=== PATIENT | male | born 1965 | race Caucasian/White ===

== ENCOUNTER 2021-09-10 07:47 | Observation (INO) ==
[2021-09-10] MEDS ORDERED: ONDANSETRON 4 MG/2 ML VIAL IV STA (08:17)
[2021-09-10] MEDS ORDERED: SODIUM CHLORIDE 0.9% 1,000 ML IV STA (08:17)
[2021-09-10] MEDS ORDERED: PANTOPRAZOLE 40 MG VIAL IV STA (08:17)
[2021-09-10 08:23] LABS: Basophils % 0.1 % (0.0-0.8); Hemoglobin 9.5 GM/DL (14.0-18.0); Immature Granulocytes % 0.8 %; Immature Granulocytes Absolute 0.11 #; Lymphocytes # 0.4 10*3/uL (1.4-4.0); Lymphocytes % 2.9 % (21.2-54.2); Mean Corpuscular HGB Conc 31.7 GM/DL (32-36); Mean Corpuscular Volume 100.3 FL (87-102); Mean Platelet Volume 8.5 FL (9.6-12.0); Monocytes # 0.8 10*3/uL (0.11-0.8); NRBC # 0.02 10*3/uL; Neutrophils % 90.2 % (38.7-73.9); Platelet Count 491 T/CUMM (130-400); Red Blood Count 2.99 MC/CUMM (3.8-5.5); Red Cell Distribution Width 17.3 % (9.3-17.3)
[2021-09-10 08:42] LABS: Lymphocytes 4 % (20-55); Platelet Estimate Adequate; Total Cells Counted 100
[2021-09-10 08:51] LABS: Alanine Aminotransferase 41 U/L (16-61); Alkaline Phosphatase 132 U/L (45-117); Aspartate Amino Transferase 26 U/L (0-37); Bilirubin,Total < 0.39 MG/DL (0.20-1.00); Blood Urea Nitrogen 28 MG/DL (7-18); Calcium 9.8 MG/DL (8.5-10.1); Carbon Dioxide 32 MMOL/L (21-32); Chloride 95 MMOL/L (98-107); Estimated Glom Filtration Rate 90 ML/MIN; Glucose 110 MG/DL (74-106); Osmolality,Calculated 274.2 MOS/KG (273-304); Potassium 3.7 MMOL/L (3.5-5.1); Sodium 134 MMOL/L (136-145); Total Protein 7.2 G/DL (6.4-8.2)
[2021-09-10 09:16] LABS: PT Patient Result 11.3 SECS (10.5-12.0)
[2021-09-10 09:17] LABS: Partial Thromboplastin Time 20.2 SECS (23.8-32.1)
[2021-09-10] MEDS ORDERED: ONDANSETRON 4 MG/2 ML VIAL IV PRN (15:41)
[2021-09-10] MEDS ORDERED: DEXTROSE 10% 250 ML BAG IV PRN (15:41)
[2021-09-10] MEDS ORDERED: PROMETHAZINE 25 MG/1 ML VIAL IM PRN (15:41)
[2021-09-10] MEDS ORDERED: GLUCAGON 1 MG VIAL IM PRN (15:41)
[2021-09-10 15:52] LABS: Hemoglobin 8.6 GM/DL (14.0-18.0)
[2021-09-10] MEDS ORDERED: methylPREDNISolone SOD SUC 125 MG/2 ML VIAL IV ONE (19:33)
[2021-09-10] MEDS: PANTOPRAZOLE 40 MG VIAL IV SCH (20:11)
[2021-09-10] MEDS: LACTATED RINGERS 1,000 ML IV SCH (20:54)
[2021-09-11 01:39] LABS: Hematocrit 27.2 VOL% (42.0-52.0); Hemoglobin 8.4 GM/DL (14.0-18.0)
[2021-09-11] MEDS: methylPREDNISolone SOD SUC 40 MG/1 ML VIAL IV SCH ×3 (01:48→14:07)
[2021-09-11 01:59] LABS: Alanine Aminotransferase 28 U/L (16-61); Albumin 2.4 G/DL (3.4-5.0); Alkaline Phosphatase 109 U/L (45-117); Aspartate Amino Transferase 14 U/L (0-37); Bilirubin,Total < 0.39 MG/DL (0.20-1.00); Blood Urea Nitrogen 22 MG/DL (7-18); Calcium 9.3 MG/DL (8.5-10.1); Carbon Dioxide 29 MMOL/L (21-32); Chloride 99 MMOL/L (98-107); Estimated Glom Filtration Rate 98 ML/MIN; Glucose 115 MG/DL (74-106); Osmolality,Calculated 273.1 MOS/KG (273-304); Potassium 3.8 MMOL/L (3.5-5.1); Sodium 135 MMOL/L (136-145); Total Protein 6.6 G/DL (6.4-8.2)
[2021-09-11] MEDS: LACTATED RINGERS 1,000 ML IV SCH (06:00)
[2021-09-11] MEDS: PANTOPRAZOLE 40 MG VIAL IV SCH (08:28)
[2021-09-11 11:41] VITALS: BP 104/35
== END 2021-09-11 14:28 | disposition home or self-care (01) ==
LOC: N.EDINP 07:47 → N.ED 07:47 → N.EDINP 18:10 → N.5E 18:12
PROVIDERS: ADMIT Internal Medicine; ATTEND Internal Medicine

== ENCOUNTER 2021-09-13 11:00 | Inpatient (IN) ==
[2021-09-13 13:16] LABS: Basophils % 0.1 % (0.0-0.8); Hematocrit 26.4 VOL% (42.0-52.0); Hemoglobin 8.5 GM/DL (14.0-18.0); Immature Granulocytes % 0.5 %; Immature Granulocytes Absolute 0.07 #; Lymphocytes # 0.2 10*3/uL (1.4-4.0); Lymphocytes % 1.2 % (21.2-54.2); Mean Corpuscular HGB Conc 32.2 GM/DL (32-36); Mean Platelet Volume 8.6 FL (9.6-12.0); Monocytes # 0.7 10*3/uL (0.11-0.8); Monocytes % 4.8 % (1.7-12.7); Neutrophils % 93.4 % (38.7-73.9); Platelet Count 398 T/CUMM (130-400); Red Blood Count 2.64 MC/CUMM (3.8-5.5); Red Cell Distribution Width 17.6 % (9.3-17.3); White Blood Count 14.1 T/CUMM (4-12)
[2021-09-13 13:37] LABS: Alanine Aminotransferase 38 U/L (16-61); Albumin 2.6 G/DL (3.4-5.0); Alkaline Phosphatase 114 U/L (45-117); Aspartate Amino Transferase 15 U/L (0-37); Bilirubin,Total < 0.39 MG/DL (0.20-1.00); Blood Urea Nitrogen 25 MG/DL (7-18); Calcium 9.5 MG/DL (8.5-10.1); Carbon Dioxide 35 MMOL/L (21-32); Chloride 92 MMOL/L (98-107); Estimated Glom Filtration Rate 96 ML/MIN; Glucose 108 MG/DL (74-106); Osmolality,Calculated 272.2 MOS/KG (273-304); Potassium 3.1 MMOL/L (3.5-5.1); Sodium 134 MMOL/L (136-145); Total Protein 6.9 G/DL (6.4-8.2)
[2021-09-13] MEDS ORDERED: PIPERACILLIN/TAZOBACTAM 3,375 MG in SODIUM CHLORIDE 0.9% 100 ML IV STA ×2 (13:55→13:59)
[2021-09-13] MEDS ORDERED: DOCUSATE SODIUM 100 MG CAPSULE PO PRN (14:15)
[2021-09-13] MEDS ORDERED: ACETAMINOPHEN 325 MG TABLET PO PRN (14:15)
[2021-09-13] MEDS ORDERED: GLUCAGON 1 MG VIAL IM PRN (14:15)
[2021-09-13] MEDS ORDERED: ONDANSETRON 4 MG/2 ML VIAL IV PRN (14:15)
[2021-09-13] MEDS ORDERED: DEXTROSE 10% 250 ML BAG IV PRN (14:23)
[2021-09-13] MEDS ORDERED: LACTATED RINGERS 1,000 ML IV SCH (14:30)
[2021-09-13] MEDS ORDERED: NITROGLYCERIN SL 0.4 MG TABLET SL PRN (14:32)
[2021-09-13] MEDS ORDERED: NICOTINE 14 MG/24 HR PATCH TRANSDERM PRN (14:34)
[2021-09-13] MEDS: VANCOMYCIN INJ 1,000 MG in SODIUM CHLORIDE 0.9% 250 ML IV SCH (15:37)
[2021-09-13] MEDS: POTASSIUM CHLORIDE INJ 40 MEQ in LACTATED RINGERS 1,000 ML IV SCH (15:37)
[2021-09-13] MEDS ORDERED: ACETAMINOPHEN 650 MG SUPP RECTAL PRN (15:46)
[2021-09-13 16:00] LABS: Lymphocytes 2 % (20-55); Platelet Estimate Increased; Total Cells Counted 100
[2021-09-13 16:01] LABS: Hypochromia 1+; Polychromasia Few
[2021-09-13 16:02] LABS: Stomatocytes Few
[2021-09-13] MEDS: ATORVASTATIN 10 MG TABLET PO SCH (20:26)
[2021-09-13] MEDS: PIPERACILLIN/TAZOBACTAM 3,375 MG in SODIUM CHLORIDE 0.9% 100 ML IV SCH (21:14)
[2021-09-14] MEDS: POTASSIUM CHLORIDE RIDER 10 MEQ/100 ML PREMIX IV PRN ×7 (01:42→14:14)
[2021-09-14] MEDS: VANCOMYCIN INJ 1,000 MG in SODIUM CHLORIDE 0.9% 250 ML IV SCH ×2 (03:04→15:40)
[2021-09-14] MEDS: PIPERACILLIN/TAZOBACTAM 3,375 MG in SODIUM CHLORIDE 0.9% 100 ML IV SCH ×3 (06:03→22:57)
[2021-09-14 06:14] LABS: Eosinophils % 0.2 % (0.00-10.9); Hematocrit 23.9 VOL% (42.0-52.0); Hemoglobin 7.4 GM/DL (14.0-18.0); Immature Granulocytes % 0.4 %; Immature Granulocytes Absolute 0.04 #; Lymphocytes # 0.2 10*3/uL (1.4-4.0); Lymphocytes % 2.5 % (21.2-54.2); Mean Corpuscular Volume 101.7 FL (87-102); Mean Platelet Volume 8.5 FL (9.6-12.0); Monocytes # 0.5 10*3/uL (0.11-0.8); Monocytes % 4.8 % (1.7-12.7); Neutrophils % 92.1 % (38.7-73.9); Platelet Count 324 T/CUMM (130-400); Red Blood Count 2.35 MC/CUMM (3.8-5.5); Red Cell Distribution Width 18.1 % (9.3-17.3); White Blood Count 9.4 T/CUMM (4-12)
[2021-09-14 06:38] LABS: Calcium 8.8 MG/DL (8.5-10.1); Potassium 3.6 MMOL/L (3.5-5.1)
[2021-09-14 06:57] LABS: Anisocytosis 1+; Band Neutrophils 11 % (0-10); Lymphocytes 3 % (20-55); Macrocytosis 2+; Platelet Estimate Normal; Total Cells Counted 100
[2021-09-14 06:58] LABS: Spherocytes Few
[2021-09-14] MEDS: POTASSIUM CHLORIDE INJ 40 MEQ in LACTATED RINGERS 1,000 ML IV SCH ×3 (08:05→10:11)
[2021-09-14] MEDS: PANTOPRAZOLE 40 MG TABLET PO SCH (08:35)
[2021-09-14] MEDS: ISOSORBIDE MONONITRATE 30 MG TABLET PO SCH (08:36)
[2021-09-14] MEDS: NEBIVOLOL 5 MG TABLET PO SCH (09:24)
[2021-09-14] MEDS: amLODIPine 10 MG TABLET PO SCH (09:25)
[2021-09-14 10:13] LABS: Amorphous Crystals,Urine Few /HPF (Few); RBC,Urine 6 /HPF (0-4); Urine Appearance Slightly Cloudy (Clear); Urine Color Yellow (Yellow); Urine pH 8.5 (4.5-8.0)
[2021-09-14 10:14] LABS: Bilirubin,Urine Negative (Negative); Blood, Urine Negative (Negative); Glucose,Urine (UA) Negative (Negative); Ketones,Urine Negative (Negative); Nitrite,Urine Negative (Negative); Protein,Urine 30 mg/dL (Negative); Urine Specific Gravity 1.015 (1.001-1.035)
[2021-09-14] MEDS: ALBUTEROL/IPRATROPIUM 3 ML NEB RESP TX SCH ×2 (13:50→18:50)
[2021-09-14] MEDS: ATORVASTATIN 10 MG TABLET PO SCH (20:47)
[2021-09-15] MEDS: ALBUTEROL/IPRATROPIUM 3 ML NEB RESP TX SCH ×4 (00:50→19:25)
[2021-09-15 02:46] LABS: Basophils % 0.1 % (0.0-0.8); Eosinophils # 0.1 10*3/uL (0.0-0.87); Eosinophils % 0.9 % (0.00-10.9); Hematocrit 24.4 VOL% (42.0-52.0); Hemoglobin 7.5 GM/DL (14.0-18.0); Immature Granulocytes % 0.3 %; Immature Granulocytes Absolute 0.02 #; Lymphocytes # 0.3 10*3/uL (1.4-4.0); Lymphocytes % 3.5 % (21.2-54.2); Mean Corpuscular HGB Conc 30.7 GM/DL (32-36); Mean Platelet Volume 8.4 FL (9.6-12.0); Monocytes # 0.4 10*3/uL (0.11-0.8); Neutrophils % 90.2 % (38.7-73.9); Platelet Count 319 T/CUMM (130-400); Red Blood Count 2.37 MC/CUMM (3.8-5.5); Red Cell Distribution Width 18.4 % (9.3-17.3)
[2021-09-15 03:08] LABS: Calcium 9.2 MG/DL (8.5-10.1); Osmolality,Calculated 270.1 MOS/KG (273-304); Potassium 3.5 MMOL/L (3.5-5.1)
[2021-09-15 03:16] LABS: Eosinophils 1 % (0-10); Lymphocytes 5 % (20-55); Platelet Estimate Normal; Total Cells Counted 100
[2021-09-15] MEDS: VANCOMYCIN INJ 1,000 MG in SODIUM CHLORIDE 0.9% 250 ML IV SCH ×2 (03:34→15:40)
[2021-09-15] MEDS: PIPERACILLIN/TAZOBACTAM 3,375 MG in SODIUM CHLORIDE 0.9% 100 ML IV SCH ×3 (05:57→21:06)
[2021-09-15] MEDS: KETOROLAC 15 MG/1 ML VIAL IV PRN (08:47)
[2021-09-15] MEDS: PANTOPRAZOLE 40 MG TABLET PO SCH (08:48)
[2021-09-15] MEDS: ISOSORBIDE MONONITRATE 30 MG TABLET PO SCH (09:59)
[2021-09-15] MEDS ORDERED: ZINC OXIDE PASTE 113 GM TUBE TOP PRN (15:27)
[2021-09-15] MEDS ORDERED: traZODone 50 MG TABLET PO PRN (15:43)
[2021-09-15 16:52] LABS: % Iron Saturation 12.2 % (18-50)
[2021-09-15] MEDS: ATORVASTATIN 10 MG TABLET PO SCH (21:09)
[2021-09-16] MEDS: ALBUTEROL/IPRATROPIUM 3 ML NEB RESP TX SCH ×4 (01:05→19:10)
[2021-09-16] MEDS: VANCOMYCIN INJ 1,000 MG in SODIUM CHLORIDE 0.9% 250 ML IV SCH (03:45)
[2021-09-16 04:38] LABS: Basophils % 0.2 % (0.0-0.8); Eosinophils # 0.1 10*3/uL (0.0-0.87); Eosinophils % 1.7 % (0.00-10.9); Hematocrit 22.9 VOL% (42.0-52.0); Hemoglobin 7.1 GM/DL (14.0-18.0); Immature Granulocytes % 0.4 %; Immature Granulocytes Absolute 0.02 #; Lymphocytes # 0.3 10*3/uL (1.4-4.0); Lymphocytes % 5.2 % (21.2-54.2); Mean Corpuscular Volume 102.2 FL (87-102); Mean Platelet Volume 8.6 FL (9.6-12.0); Monocytes # 0.4 10*3/uL (0.11-0.8); Monocytes % 8.1 % (1.7-12.7); Neutrophils % 84.4 % (38.7-73.9); Platelet Count 319 T/CUMM (130-400); Red Blood Count 2.24 MC/CUMM (3.8-5.5); Red Cell Distribution Width 17.9 % (9.3-17.3); White Blood Count 4.8 T/CUMM (4-12)
[2021-09-16 04:46] LABS: PT Patient Result 11.4 SECS (10.5-12.0)
[2021-09-16 04:52] LABS: Calcium 9.4 MG/DL (8.5-10.1); Osmolality,Calculated 277.5 MOS/KG (273-304); Potassium 3.2 MMOL/L (3.5-5.1)
[2021-09-16] MEDS: PIPERACILLIN/TAZOBACTAM 3,375 MG in SODIUM CHLORIDE 0.9% 100 ML IV SCH ×3 (05:30→21:16)
[2021-09-16] MEDS: POTASSIUM CHLORIDE RIDER 10 MEQ/100 ML PREMIX IV PRN ×2 (05:35→07:55)
[2021-09-16] MEDS: KETOROLAC 15 MG/1 ML VIAL IV PRN (05:49)
[2021-09-16] MEDS ORDERED: LIDOCAINE 4% TOP SOLN 50 ML BOTTLE ONE (09:38)
[2021-09-16] MEDS ORDERED: LIDOCAINE 4% TOP SOLN 50 ML BOTTLE TOP ONE (09:40)
[2021-09-16] MEDS ORDERED: KETAMINE 500 MG/10 ML VIAL ONE (09:43)
[2021-09-16] MEDS ORDERED: MIDAZOLAM 2 MG/2 ML VIAL ONE (09:43)
[2021-09-16] MEDS ORDERED: LIDOCAINE 2% 5 ML VIAL ONE (10:27)
[2021-09-16] MEDS ORDERED: propofoL 200 MG/20 ML VIAL IV ONE (10:27)
[2021-09-16] MEDS ORDERED: SUCCINYLCHOLINE 200 MG/10 ML VIAL ONE (10:27)
[2021-09-16] MEDS: NEBIVOLOL 5 MG TABLET PO SCH (11:48)
[2021-09-16] MEDS: amLODIPine 10 MG TABLET PO SCH (11:49)
[2021-09-16] MEDS: ISOSORBIDE MONONITRATE 30 MG TABLET PO SCH (11:49)
[2021-09-16] MEDS: PANTOPRAZOLE 40 MG TABLET PO SCH (11:49)
[2021-09-16] MEDS ORDERED: SODIUM CHLORIDE 0.9% 1,000 ML IV PRN (14:30)
[2021-09-16] MEDS ORDERED: POTASSIUM CHLORIDE 20 MEQ TABLET PO ONE (15:00)
[2021-09-16] MEDS: FERROUS GLUCONATE 324 MG TABLET PO SCH (17:26)
[2021-09-16] MEDS: ATORVASTATIN 10 MG TABLET PO SCH (21:22)
[2021-09-16] MEDS: LACTATED RINGERS 1,000 ML IV SCH (22:54)
[2021-09-17] MEDS: ALBUTEROL/IPRATROPIUM 3 ML NEB RESP TX SCH ×4 (00:20→19:44)
[2021-09-17 05:12] LABS: Basophils % 0.3 % (0.0-0.8); Eosinophils # 0.1 10*3/uL (0.0-0.87); Eosinophils % 2.2 % (0.00-10.9); Hematocrit 31.5 VOL% (42.0-52.0); Hemoglobin 9.7 GM/DL (14.0-18.0); Immature Granulocytes % 0.6 %; Immature Granulocytes Absolute 0.04 #; Lymphocytes # 0.3 10*3/uL (1.4-4.0); Lymphocytes % 4.4 % (21.2-54.2); Mean Corpuscular HGB Conc 30.8 GM/DL (32-36); Mean Corpuscular Volume 99.4 FL (87-102); Mean Platelet Volume 8.5 FL (9.6-12.0); Monocytes # 0.5 10*3/uL (0.11-0.8); Monocytes % 8.3 % (1.7-12.7); Neutrophils % 84.2 % (38.7-73.9); Platelet Count 303 T/CUMM (130-400); Red Blood Count 3.17 MC/CUMM (3.8-5.5); Red Cell Distribution Width 17.5 % (9.3-17.3); White Blood Count 6.4 T/CUMM (4-12)
[2021-09-17 05:26] LABS: Osmolality,Calculated 283.1 MOS/KG (273-304); Potassium 3.3 MMOL/L (3.5-5.1)
[2021-09-17 05:27] LABS: Risk Ratio 2.49; VLDL Cholesterol 23.4 MG/DL
[2021-09-17] MEDS: PIPERACILLIN/TAZOBACTAM 3,375 MG in SODIUM CHLORIDE 0.9% 100 ML IV SCH (05:35)
[2021-09-17 05:38] LABS: Band Neutrophils 1 % (0-10); Eosinophils 1 % (0-10); Lymphocytes 5 % (20-55); Macrocytosis 1+; Total Cells Counted 100
[2021-09-17 05:39] LABS: Platelet Estimate Normal; Polychromasia Slight
[2021-09-17] MEDS: KETOROLAC 15 MG/1 ML VIAL IV PRN ×3 (08:44→22:58)
[2021-09-17] MEDS ORDERED: LIDOCAINE 1%/EPI INJ 20 ML VIAL ONE (10:27)
[2021-09-17] MEDS ORDERED: TISSUE ADHESIVE 1 EACH APPLICATOR TOP ONE (10:27)
[2021-09-17] MEDS ORDERED: BUPIVACAINE MPF 0.25% 30 ML VIAL ONE (10:27)
[2021-09-17] MEDS: LACTATED RINGERS 1,000 ML IV SCH ×3 (10:34→12:32)
[2021-09-17] MEDS: FERROUS GLUCONATE 324 MG TABLET PO SCH ×2 (12:32→16:12)
[2021-09-17] MEDS: amLODIPine 10 MG TABLET PO SCH (12:33)
[2021-09-17] MEDS: NEBIVOLOL 5 MG TABLET PO SCH (12:33)
[2021-09-17] MEDS: CHOLECALCIFEROL 5,000 UNIT TABLET PO SCH (12:33)
[2021-09-17] MEDS: ISOSORBIDE MONONITRATE 30 MG TABLET PO SCH (12:33)
[2021-09-17] MEDS: PANTOPRAZOLE 40 MG TABLET PO SCH (12:33)
[2021-09-17] MEDS ORDERED: POTASSIUM CHLORIDE 20 MEQ TABLET PO ONE (14:00)
[2021-09-17] MEDS ORDERED: ONDANSETRON 4 MG/2 ML VIAL IV PRN (14:53)
[2021-09-17] MEDS ORDERED: HYDROmorphone 1 MG/1 ML SYRINGE IV PRN (14:53)
[2021-09-17] MEDS: cefTRIAXone 1,000 MG in SODIUM CHLORIDE 0.9% 100 ML IV SCH (15:48)
[2021-09-17] MEDS: POTASSIUM CHLORIDE RIDER 10 MEQ/100 ML PREMIX IV PRN ×4 (15:49→19:09)
[2021-09-17] MEDS: ATORVASTATIN 10 MG TABLET PO SCH (20:58)
[2021-09-18] MEDS: ALBUTEROL/IPRATROPIUM 3 ML NEB RESP TX SCH ×5 (00:28→18:53)
[2021-09-18] MEDS: KETOROLAC 15 MG/1 ML VIAL IV PRN (05:03)
[2021-09-18 05:28] LABS: Hematocrit 31.3 VOL% (42.0-52.0); Hemoglobin 9.5 GM/DL (14.0-18.0); Immature Granulocytes % 0.6 %; Immature Granulocytes Absolute 0.05 #; Lymphocytes # 0.3 10*3/uL (1.4-4.0); Lymphocytes % 3.4 % (21.2-54.2); Mean Corpuscular HGB Conc 30.4 GM/DL (32-36); Mean Corpuscular Volume 101.3 FL (87-102); Mean Platelet Volume 8.6 FL (9.6-12.0); Monocytes # 0.4 10*3/uL (0.11-0.8); Monocytes % 5.5 % (1.7-12.7); Neutrophils % 90.5 % (38.7-73.9); Platelet Count 294 T/CUMM (130-400); Red Blood Count 3.09 MC/CUMM (3.8-5.5); Red Cell Distribution Width 17.5 % (9.3-17.3)
[2021-09-18 05:47] LABS: Calcium 8.7 MG/DL (8.5-10.1); Osmolality,Calculated 280.4 MOS/KG (273-304); Potassium 4.9 MMOL/L (3.5-5.1)
[2021-09-18 05:57] LABS: Band Neutrophils 1 % (0-10); Lymphocytes 4 % (20-55); Macrocytosis 1+; Metamyelocytes 1 %; Total Cells Counted 100
[2021-09-18 05:58] LABS: Platelet Estimate Normal
[2021-09-18] MEDS ORDERED: LACTATED RINGERS 1,000 ML IV SCH (08:00)
[2021-09-18] MEDS: PANTOPRAZOLE 40 MG TABLET PO SCH (08:43)
[2021-09-18] MEDS: CHOLECALCIFEROL 5,000 UNIT TABLET PO SCH (08:43)
[2021-09-18] MEDS: FERROUS GLUCONATE 324 MG TABLET PO SCH ×2 (08:44→18:33)
[2021-09-18] MEDS: ISOSORBIDE MONONITRATE 30 MG TABLET PO SCH (08:49)
[2021-09-18] MEDS: amLODIPine 10 MG TABLET PO SCH (08:49)
[2021-09-18] MEDS: NEBIVOLOL 5 MG TABLET PO SCH (08:49)
[2021-09-18] MEDS: LACTATED RINGERS 1,000 ML IV SCH (08:49)
[2021-09-18] MEDS: cefTRIAXone 1,000 MG in SODIUM CHLORIDE 0.9% 100 ML IV SCH (15:25)
[2021-09-18] MEDS: ATORVASTATIN 10 MG TABLET PO SCH (21:40)
[2021-09-19] MEDS: ALBUTEROL/IPRATROPIUM 3 ML NEB RESP TX SCH ×2 (01:24→07:24)
[2021-09-19 12:05] VITALS: BP 144/69
[2021-09-20] MEDS ORDERED: LEVOFLOXACIN 500 MG TABLET PO SCH (09:00)
== END 2021-09-19 12:25 | disposition home or self-care (01) | DRG 327 ==
LOC: N.ED 11:00 → SUATTDRO 14:03 → N.EDINP 14:03 → N.3E 15:00
PROVIDERS: ADMIT Internal Medicine; ATTEND Internal Medicine